=== PATIENT | male | born 1985 | race Asian ===

== ENCOUNTER 2018-03-12 17:17 | Emergency (ER) | payer SELFPAY ==
[~2018-03-12] VITALS: Ht 157.5 cm; Wt 62.0 kg
[2018-03-12 19:14] VITALS: BP 120/68
[2018-03-12] MEDS: PLEASE ENTER ALLERGIES MC SCH ×4 (19:20→22:13)
[2018-03-12] MEDS: DEXAMETH OP SCH (19:25)
[2018-03-12] MEDS: TOBRAMYCIN OP SCH (19:25)
[2018-03-12] MEDS ORDERED: POLY10DR3 EACHEYE (19:34)
== END 2018-03-12 19:31 | disposition home or self-care (01) ==
LOC: ED 19:05
DX: H10.33 Unspecified acute conjunctivitis, bilateral (principal); F17.200 Nicotine dependence, unspecified, uncomplicated
CPT/HCPCS: 99282